=== PATIENT | male | born 1985 | race African-American/Black ===

== ENCOUNTER 2019-07-28 08:37 | Emergency (ER) | payer OTHER, SELFPAY ==
[2019-07-28] MEDS ORDERED: Tetracaine 0.5% OPHTH SOLN/PF 4 ML BOT ONE (09:14)
[2019-07-28] MEDS ORDERED: Fluorescein Opthalmic Strip ONE (09:14)
== END 2019-07-28 09:53 | disposition home or self-care (01) ==
LOC: MADERS 08:37
DX: H10.33 Unspecified acute conjunctivitis, bilateral (principal); F17.210 Nicotine dependence, cigarettes, uncomplicated
CPT/HCPCS: 99282

== ENCOUNTER 2019-11-14 08:29 | Emergency (ER) | payer OTHER ==
[2019-11-14 09:34] LABS: Bilirubin Negative (Negative); Blood, Urine Negative (Negative); Clarity Clear (Clear); Glucose, Urine (Dipstick) Negative (Negative); Ketone, Urine Negative (Negative); Leukocyte Negative (Negative); Nitrite Negative (Negative); Protein, Urine (Dipstick) Negative (Neg-Trace); Urobilinogen 0.2 mg/dL (Less than 2); pH, Urine 5.5 (5.0-9.0)
[2019-11-14 10:10] LABS: Hemoglobin 12.8 g/dL (14.0-18.0); Mean Corpuscular Hemoglobin 27.5 pg (27.0-31.0); Mean Corpuscular Volume 85.9 fL (78.0-98.0); Mean Platelet Volume 8.8 fL (7.4-10.4); Platelet Count 165 thou/uL (130-400); RBC Distribution Width 12.1 % (11.5-14.5); Red Blood Cell (RBC) Count 4.67 mill/uL (4.70-6.10); White Blood Cell (WBC) Count 5.3 thou/uL (4.8-10.8)
[2019-11-14 10:11] LABS: #Basophils 0.2 thou/uL (0.0-0.2); #Eosinphils 0.1 thou/uL (0.0-0.7); #Lymphocytes 2.4 thou/uL (1.20-3.40); #Monocytes 0.3 thou/uL (0.11-0.59); #Neutrophils 2.3 thou/uL (1.40-6.50); %Basophils 2.9 % (0.0-1.0); %Eosinophils 2.5 % (0.0-10.0); %Lymphocytes 44.7 % (21.0-51.0); %Monocytes 6.6 % (0.0-10.0); %Neutrophils 43.3 % (42.0-75.0)
[2019-11-14 10:19] LABS: Carbon Dioxide 27 mmol/L (22-29); Chloride 104 mmol/L (98-107); Sodium 142 mmol/L (136-145)
[2019-11-14 10:20] LABS: BUN (Urea Nitrogen) 18 mg/dL (8.9-20.6); Calc. Creatinine Clearance 0 mL/min (70-130); Estimated GFR-MDRD 86
[2019-11-14 10:21] LABS: Anion Gap 15 mmol/L (10-20); Bilirubin, Total 0.2 mg/dL (0.2-1.2); Calcium 9.3 mg/dL (7.8-10.44); Glucose 94 mg/dL (70-105); Protein, Total 7.2 g/dL (6.0-8.3)
--- NOTE | 2019-11-14 10:21 | RAD ---
PORTABLE CHEST 1 VIEW: DATE: 11/14/2019. TIME: 9:32 AM. HISTORY: Cough. FINDINGS: The heart size is normal. The lungs are expanded and clear. The bony thorax is unremarkable. IMPRESSION: Normal exam. POS: AH
[2019-11-14 10:22] LABS: ALT (SGPT) 19 U/L (8-55); AST (SGOT) 22 U/L (5-34); Albumin 4.5 g/dL (3.5-5.0); Alkaline Phosphatase 81 U/L (40-110); CK (CPK) 353 U/L (30-200); Globulin 2.7 g/dL (2.4-3.5); Lipase 47 U/L (8-78)
[2019-11-15 14:12] LABS: SARS-CoV-2 MS2 Positive; SARS-CoV-2 N Gene Negative; SARS-CoV-2 S Gene Negative; SARS-CoV-2 by NAA Not Detected (NotDetected); SARS-CoV-2 orf1ab Negative
--- NOTE | 2019-11-24 05:46 | PQF ---
[facility] POST DISCHARGE CLINICAL DOCUMENTATION IMPROVEMENT CLARIFICATION FORM Todays Date: 11/19/2019 Patients Name Paulino Dial Admit Date 11/14/2019 Disch Date 11/14/2019 Inspector [employer]wn[employer] Detail Name Jing florence Email: [email or web address] Cell: [phone] To be completed by Inspector [employer] Detail: Present Clinical Indicators - Signs / Symptoms Results and Location in Medical Record [ ] Documentation of: [ ] [ ] Documentation of: [ ] [ ] Documentation of: [ ] [ ] Documentation of: [ ] [ ] Risks [ ] [ ] [ ] Treatment [X] Bronchitis Query for specificity of acute or chronic bronchitis [ ] [ ] To be completed by Physician: DR. Manda MD, Michael The documentation in this patients record requires clarification to ensure coding compliance and accuracy. Check the appropriate box and include in your discharge summary. [ ] [ ] [ ] [ ] Please check this box if this does not apply to this patient [ ] Unable to determine [ ] Other diagnosis: Review the following information and exercise your independent professional judgment in responding to the clarification. Based upon the clinical findings, risk factors, and treatment, please clarify if you are treating one of the above probable or suspected diagnoses. Physician Signature: Date Time MTDD
== END 2019-11-14 11:05 | disposition home or self-care (01) ==
LOC: MADERS 08:29
DX: E86.0 Dehydration (principal); Z20.828 Contact with and (suspected) exposure to other viral communicable diseases; J40 Bronchitis, not specified as acute or chronic; F17.210 Nicotine dependence, cigarettes, uncomplicated
CPT/HCPCS: 36415; 71045; 80053; 81003; 82150; 82550; 83690; 85025; 86140; 87635; U0003